=== PATIENT | female | born 1945 ===

== ENCOUNTER 2024-12-31 06:00 | Day surgery (SDC) | payer OTHER ==
[~2024-12-31 06:00] MED LIST: ALENDRONATE SOD70 MG; AMLODIPINE BESYL5 MG; COZAAR25 MG PO; LEVO-T25 MCG PO; SIMVASTATIN20 MG; SYNTHROID50 MCG; SYNTHROID75 MCG
[2024-12-31] MEDS ORDERED: fentaNYL CITRATE 50 MCG/ML AMPUL IV PUSH ONE (10:45)
[2024-12-31] MEDS ORDERED: MIDAZOLAM HCL 2 MG/2 ML VIAL IV ONE (10:45)
[2024-12-31] MEDS ORDERED: ONDANSETRON HCL 2 MG/ML VIAL IV ONE (10:45)
[2024-12-31] MEDS ORDERED: DIPHENHYDRAMINE HCL 50 MG/ML VIAL 1ML IV ONE (10:45)
== END 2024-12-31 12:35 | disposition home or self-care (01) ==
LOC: AMB-ENDOS 06:00
PROVIDERS: ATTEND Colon & Rectal Surgery
DX: K57.32 Diverticulitis of large intestine without perforation or abscess without bleeding (principal); Z12.11 Encounter for screening for malignant neoplasm of colon; R10.32 Left lower quadrant pain